=== PATIENT | male | born 1970 | race Caucasian/White ===

== ENCOUNTER 2016-05-06 02:11 | Observation (INO) | payer SELFPAY ==
[~2016-05-06] VITALS: Ht 175.3 cm; Wt 94.0 kg
[2016-05-06] VITALS (8 sets, daily range): BP systolic 121–153; BP diastolic 72–105; PULSE 52–72; RESP 16–22; TEMP 97.6–98; O2SAT 95–100
[2016-05-06] MEDS: SODIUM CHLOR 0.9% 1000 ML INJ 1,000 ML IV SCH ×2 (02:29→06:09)
[2016-05-06] MEDS ORDERED: ONDANSETRON HCL 4 MG/2 ML VIAL IVP ONE (02:30)
[2016-05-06] MEDS ORDERED: SODIUM CHLORIDE 0.9% FLUSH 5 ML FLUSH IVF PRN ×3 (02:30→19:30)
[2016-05-06] MEDS ORDERED: HYDROmorphone HCL PF 1 MG/ML VIAL IV PUSH ONE (02:30)
[2016-05-06 02:40] LABS: AUTOMATED NEUTROPHIL # 5.4 TH/MM3 (1.8-7.7); BASOPHIL % 0.4 % (0.0-2.0); EOSINOPHIL # 0.6 TH/MM3 (0-0.4); EOSINOPHIL % 6.1 % (0.0-4.0); HEMATOCRIT 46.1 % (39.0-51.0); HEMO FLAGS DIFF FINAL; LYMPH % 27.6 % (9.0-44.0); LYMPHOCYTE # 2.5 TH/MM3 (1.0-4.8); MEAN CELL VOLUME 90.1 FL (80.0-100.0); MEAN CORPUSCULAR HEMOGLOBIN 28.7 PG (27.0-34.0); MEAN CORPUSCULAR HGB CONC 31.9 % (32.0-36.0); MONO % 7.1 % (0.0-8.0); NEUT % 58.8 % (16.0-70.0); PLATELET COUNT 333 TH/MM3 (150-450); RED BLOOD COUNT 5.11 MIL/MM3 (4.50-5.90); RED CELL DISTRIBUTION WIDTH 13.5 % (11.6-17.2); WHITE BLOOD COUNT 9.2 TH/MM3 (4.0-11.0)
--- NOTE | 2016-05-06 02:41 | PD ---
HPI Chief Complaint: Abdominal Pain Time Seen by Provider: 02:21 Travel History International Travel<30 days: No Contact w/Intl Traveler<30days: No Traveled to known affect area: No History of Present Illness HPI 45-year-old male presents to the emergency department by private transportation for complaint of right upper quadrant abdominal pain. According to the patient since 1:30 AM patient has had severe abdominal pain. Patient states she was attempting to eat half of a ham sandwich when his pain began. Patient denies chest pain. Patient has had nausea and vomiting. No report of hematemesis coffee-ground emesis melena or hematochezia. No shortness of breath or sweats. No referred pain. Patient states she's been dealing with abdominal pain and right upper quadrant pain intermittently for the past month or so. 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 Patient denies personal history of hypertension dyslipidemia diabetes or CAD. Patient denies family history of premature onset heart disease. Patient does have family history of grandmother dying of brain cancer. Patient rates pain 12/10 in intensity. Patient denies any injury. Patient denies known history of peptic ulcer disease cholelithiasis/biliary colic or pancreatitis. PFSH Past Medical History Narrative Medical Remote neck trauma with tracheostomy; tobacco use substance use; nursing notes reviewed Social History Tobacco Use: No Allergies-Medications (Allergen,Severity, Reaction): Coded Allergies: Codeine (Verified Allergy, Unknown, 05/06/16) Penicillin (Verified Allergy, Unknown, 05/06/16) Reported Meds & Prescriptions Reported Meds & Active Scripts Active Reported Percocet (Oxycodone-Acetaminophen) 5-325 mg Tab 1-2 Tab PO Q4H PRN Physical Exam Narrative GENERAL: Well-developed well-nourished male in obvious discomfort holding his abdomen and crying tearfully. SKIN: Warm and dry. HEAD: Normocephalic. EYES: No scleral icterus. No injection or drainage. NECK: Supple, trachea midline. No JVD or lymphadenopathy. CARDIOVASCULAR: Regular rate and rhythm without murmurs, gallops, or rubs. RESPIRATORY: Breath sounds equal bilaterally. No accessory muscle use. GASTROINTESTINAL: Abdomen soft, non-tender, nondistended. MUSCULOSKELETAL: No cyanosis, or edema. BACK: Nontender without obvious deformity. No CVA tenderness. Data Data Last Documented VS Orders Complete Blood Count With Diff (05/06/16 02:22) Comprehensive Metabolic Panel (05/06/16 02:22) Lipase (05/06/16 02:22) Urinalysis - C+S If Indicated (05/06/16 02:22) Ct Abd/Pel W Iv Contrast(Rout) (05/06/16 02:22) Iv Access Insert/Monitor (05/06/16 02:22) Ecg Monitoring (05/06/16 02:22) Oximetry (05/06/16 02:22) Ondansetron Inj (Zofran Inj) (05/06/16 02:30) Sodium Chlor 0.9% 1000 Ml Inj (Ns 1000 M (05/06/16 02:22) Sodium Chloride 0.9% Flush (Ns Flush) (05/06/16 02:30) Electrocardiogram (05/06/16 02:22) Chest, Single Ap (05/06/16 02:22) Troponin I (05/06/16 02:22) Magnesium (Mg) (05/06/16 02:22) Hydromorphone Pf Inj (Dilaudid Pf Inj) (05/06/16 02:30) Drug Screen, Random Urine (05/06/16 02:41) Iohexol 300 Inj (Rad Ct) (Omnipaque 300 (05/06/16 04:04) Admit Order (Ed Use Only) (05/06/16 ) ^ Coatings Inspector / Telemetry (05/06/16 05:40) ^ Saline Lock (05/06/16 05:40) Resp Oxygen Florentin C Titrat 1-4 L (05/06/16 ) ^ Notify Dr: Other (05/06/16 05:40) Ondansetron Inj (Zofran Inj) (05/06/16 05:45) Sodium Chloride 0.9% Flush (Ns Flush) (05/06/16 09:00) Sodium Chloride 0.9% Flush (Ns Flush) (05/06/16 05:45) ^ For Further Orders (05/06/16 05:40) Labs MDM Medical Decision Making Medical Screen Exam Complete: Yes Emergency Medical Condition: Yes Medical Record Reviewed: Yes Interpretation(s) EKG normal sinus rhythm rate [address] elevation or injury pattern J-point elevation is noted at V3 CT abd/pel: CONCLUSION: 1. Cholelithiasis and gallbladder wall thickening, could be acute cholecystitis in the right clinical setting. 2. Otherwise unremarkable CT abdomen/pelvis. Marcellus Cunha MD on May 06, 2016 at 5:14 Board Certified Radiologist. This report was verified electronically. cbc: grossly wnl metabolic panel:random glucose 115 o/w values grossly wnl troponin I: less than 0.02, not elevated ua: wnl uds: negative Differential Diagnosis Abdominal pain, acute cholecystitis, biliary colic, choledocholithiasis, pancreatitis, ruptured viscus, peptic ulcer disease, esophageal spasm, Boerhaave 's, Tessa-Lucia tear, ACS, IA Narrative Course Patient placed on regional vice president life sales IV access obtained EKG performed which reveals no acute ST elevation or injury pattern patient administered Zofran 4 mg IV along with Dilaudid 0.5 mg IV. Patient admitted to nursing staff that he had used cocaine recently patient remains tender to palpation after dilaudid and ct with wall thickening and gallstones noted; LFT's wnl x alk phos mild elevation; patient remains npo Physician Communication Physician Communication case discussed with Dr Elizabeth Colby --admit to his service to [facility] Diagnosis Primary Impression: Cholecystitis, acute with cholelithiasis Qualified Code: K80.00 - Calculus of gallbladder with acute cholecystitis without obstruction Admitting Information Admitting Physician Requests: Admit Sheyla Guevara MD May 06, 2016 02:41 Anion Gap 7 MEQ/L Blood Urea Nitrogen 11 MG/DL Creatinine 1.20 MG/DL Estimat Glomerular Filtration 66 ML/MIN Rate Random Glucose 115 MG/DL Calcium Level 8.2 MG/DL Magnesium Level 2.4 MG/DL Total Bilirubin 0.2 MG/DL Aspartate Amino Transf 33 U/L (AST/SGOT) Alanine Aminotransferase 38 U/L (ALT/SGPT) Alkaline Phosphatase 123 U/L Troponin I LESS THAN 0.02 NG/ML Total Protein 7.8 GM/DL Albumin 3.6 GM/DL Lipase 166 U/L Urine Color YELLOW Urine Turbidity CLEAR Urine pH 5.5 Urine Specific [place] 1.025 Urine Protein NEG mg/dL Urine Glucose (UA) NEG mg/dL Urine Ketones NEG mg/dL Urine Occult Blood NEG Urine Nitrite NEG Urine Bilirubin NEG Urine Leukocyte Esterase NEG Urine WBC 0-2 /hpf Urine Squamous Epithelial 0-5 /hpf Cells Urine Mucus OCC /lpf Microscopic Urinalysis Comment CULT NOT INDICATED Urine Opiates Screen NEG Urine Barbiturates Screen NEG Urine Amphetamines Screen NEG Urine Benzodiazepines Screen NEG Urine Cocaine Screen NEG Urine Cannabinoids Screen NEG MDM Medical Decision Making Medical Screen Exam Complete: Yes Emergency Medical Condition: Yes Medical Record Reviewed: Yes Interpretation(s) EKG normal sinus rhythm rate [address] elevation or injury pattern J-point elevation is noted at V3 CT abd/pel: CONCLUSION: 1. Cholelithiasis and gallbladder wall thickening, could be acute cholecystitis in the right clinical setting. 2. Otherwise unremarkable CT abdomen/pelvis. Marcellus Cunha MD on May 06, 2016 at 5:14 Board Certified Radiologist. This report was verified electronically. cbc: grossly wnl metabolic panel:random glucose 115 o/w values grossly wnl troponin I: less than 0.02, not elevated ua: wnl uds: negative Differential Diagnosis Abdominal pain, acute cholecystitis, biliary colic, choledocholithiasis, pancreatitis, ruptured viscus, peptic ulcer disease, esophageal spasm, Boerhaave 's, Tessa-Lucia tear, ACS, IA Narrative Course Patient placed on regional vice president life sales IV access obtained EKG performed which reveals no acute ST elevation or injury pattern patient administered Zofran 4 mg IV along with Dilaudid 0.5 mg IV. Patient admitted to nursing staff that he had used cocaine recently patient remains tender to palpation after dilaudid and ct with wall thickening and gallstones noted; LFT's wnl x alk phos mild elevation; patient remains npo Physician Communication Physician Communication case discussed with Dr Elizabeth Colby --admit to his service to [facility] Diagnosis Primary Impression: Cholecystitis, acute with cholelithiasis Qualified Code: K80.00 - Calculus of gallbladder with acute cholecystitis without obstruction Admitting Information Admitting Physician Requests: Admit Sheyla Guevara MD May 06, 2016 02:41
[2016-05-06 02:45] LABS: CHLORIDE 109 MEQ/L (98-107); POTASSIUM 4.2 MEQ/L (3.5-5.1); SODIUM (NA) 143 MEQ/L (136-145)
[2016-05-06 02:48] LABS: ANION GAP 7 MEQ/L (5-15); BICARBONATE 26.9 MEQ/L (21.0-32.0); MAGNESIUM 2.4 MG/DL (1.5-2.5)
[2016-05-06 02:49] LABS: BLOOD UREA NITROGEN 11 MG/DL (7-18)
[2016-05-06 02:51] LABS: ALT (GPT) 38 U/L (12-78); AST (GOT) 33 U/L (15-37); GLOMERULAR FILTRATION RATE 66 ML/MIN (>89)
[2016-05-06 02:53] LABS: TOTAL BILIRUBIN ADULT 0.2 MG/DL (0.2-1.0)
[2016-05-06 02:54] LABS: ALKALINE PHOSPHATASE 123 U/L (45-117)
--- NOTE | 2016-05-06 03:19 | RADHPO ---
EXAM DATE/TIME: 05/06/2016 02:46 [facility] COMPARISON: No previous studies available for comparison. INDICATIONS : Patient states chest pains. MEDICAL HISTORY : None. SURGICAL HISTORY : None. ENCOUNTER: Initial ACUITY: 1 day PAIN SCORE: 4/10 LOCATION: Bilateral chest FINDINGS: A single view of the chest demonstrates the lungs to be symmetrically aerated without evidence of mas s, infiltrate or effusion. The cardiomediastinal contours are unremarkable. Osseous structures are intact.CONCLUSION: No acute disease. Marcellus Cunha MD on May 06, 2016 at 3:18 Board Certified Radiologist. This report was verified electronically.
[2016-05-06] MEDS ORDERED: IOHEXOL 300 MG/ML 100 ML BTL (for Rad CT) IV ONE (04:04)
[2016-05-06 04:16] LABS: BLOOD, URINE NEG (NEG); GLUCOSE,URINE NEG (NEG); KETONE, URINE NEG (NEG); NITRITE,URINE NEG (NEG); PH, URINE 5.5 (5.0-8.5)
[2016-05-06 04:29] LABS: BARBITURATES, URINE NEG (NEG)
[2016-05-06 04:30] LABS: AMPHETAMINE, URINE NEG (NEG); COCAINE, URINE NEG (NEG)
[2016-05-06 04:32] LABS: URINE COLOR YELLOW (YELLW/STRAW)
[2016-05-06 04:36] LABS: MUCUS URINE OCC /lpf (OCC); SQUAMOUS EPITHELIAL CELL URINE 0-5 /hpf (0-5)
[2016-05-06 04:37] LABS: COMMENT (UR) CULT NOT INDICATED; CULTURE IF INDICATED CULT NOT INDICATED; WBC, URINE 0-2 /hpf (0-5)
--- NOTE | 2016-05-06 05:17 | RADHPO ---
EXAM DATE/TIME: 05/06/2016 03:50 [facility] COMPARISON: No previous studies available for comparison. INDICATIONS : Right upper quadrant pain. IV CONTRAST: 100 cc Omnipaque 300 (iohexol) IV ORAL CONTRAST: No oral contrast ingested. RADIATION DOSE: 15.74 CTDIvol (mGy) MEDICAL HISTORY : None SURGICAL HISTORY : None. ENCOUNTER: Initial ACUITY: 1 day PAIN SCALE: 10/10 LOCATION: Right upper quadrant TECHNIQUE: Volumetric scanning of the abdomen and pelvis was performed. Using automated exposure control and ad justment of the mA and/or kV according to patient size, radiation dose was kept as low as reasonably achievable to obtain optimal diagnostic quality images. FINDINGS: LOWER LUNGS: The visualized lower lungs are clear. LIVER: Homogeneous density without lesion. There is no dilation of the biliary tree. There are a few calcif ied gallstones. There does appear to be some wall thickening SPLEEN: Normal size without lesion. PANCREAS: Within normal limits. KIDNEYS: Normal in size and shape. There is no mass, stone or hydronephrosis. ADRENAL GLANDS: Within normal limits. VASCULAR: There is no aortic aneurysm. BOWEL/MESENTERY: The stomach, small bowel, and colon demonstrate no acute abnormality. There is no free intraperitone al air or fluid. ABDOMINAL WALL: Within normal limits. RETROPERITONEUM: There is no lymphadenopathy. BLADDER: No wall thickening or mass. REPRODUCTIVE: Within normal limits. INGUINAL: There is no lymphadenopathy or hernia. MUSCULOSKELETAL: Within normal limits for patient age. CONCLUSION: 1. Cholelithiasis and gallbladder wall thickening, could be acute cholecystitis in the right clinical setting. 2. Otherwise unremarkable CT abdomen/pelvis. Marcellus Cunha MD on May 06, 2016 at 5:14 Board Certified Radiologist. This report was verified electronically.
[2016-05-06] MEDS ORDERED: CIPROFLOXACIN 400 MG PREMIX 200 ML IV ONE (05:45)
[2016-05-06] MEDS ORDERED: metroNIDAZOLE 500 MG INJ 100 ML IV ONE (05:45)
[2016-05-06] MEDS ORDERED: ONDANSETRON HCL 4 MG/2 ML VIAL IV PRN ×2 (05:45→19:30)
[2016-05-06] MEDS ORDERED: PROPOFOL 200 MG/20 ML AMP IV ONE (08:30)
[2016-05-06] MEDS ORDERED: ePHEDrine/NS 50 MG/5 ML SYR IV ONE (08:31)
[2016-05-06] MEDS ORDERED: LACTATED RINGER'S 1000 ML INJ 1,000 ML IV ONE (08:31)
[2016-05-06] MEDS ORDERED: ONDANSETRON HCL 4 MG/2 ML VIAL IV PUSH ONE (08:31)
[2016-05-06] MEDS: SODIUM CHLORIDE 0.9% FLUSH 5 ML FLUSH IVF SCH ×2 (09:08→12:00)
[2016-05-06] MEDS ORDERED: LACTATED RINGER'S 1000 ML INJ 1,000 ML IV SCH (10:48)
[2016-05-06] MEDS ORDERED: SODIUM CHLORIDE 0.9% FLUSH 5 ML FLUSH IV FLUSH PRN (11:00)
[2016-05-06] MEDS ORDERED: HYDROmorphone HCL PF 1 MG/ML VIAL IV PUSH PRN (11:00)
[2016-05-06] MEDS ORDERED: SODIUM CHLORID 0.9% 500 ML IV SCH (11:15)
[2016-05-06] MEDS ORDERED: METOPROLOL TARTRATE 25 MG TAB PO PRN (11:15)
[2016-05-06] MEDS ORDERED: LACTATED RINGER'S 1000 ML IV SCH (11:15)
[2016-05-06] MEDS ORDERED: INSULIN HUMAN REGULAR 1,000 UNITS/10 ML VIAL SQ PRN (11:15)
--- NOTE | 2016-05-06 11:18 | EKG ---
Date Performed: 05/06/2016 Time Performed: 02:24:32 PTAGE: 45 years EKG: Sinus rhythm Normal ECG NO PREVIOUS TRACING DOCTOR: Suresh Ernst Interpretating Date/Time 05/06/2016 11:17:58
[2016-05-06] MEDS ORDERED: metroNIDAZOLE 500 MG INJ 100 ML IV SCH ×2 (14:00→15:00)
[2016-05-06] MEDS ORDERED: BUPIVACAINE/EPINEPHRINE 0.25% PF 30 ML VIAL ONE (17:59)
[2016-05-06] MEDS ORDERED: CIPROFLOXACIN 400 MG PREMIX 200 ML IV SCH ×2 (18:00→21:00)
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
[2016-05-06] MEDS ORDERED: ACETAMINOPHEN 1000 MG/100 ML VIAL IV ONE (19:09)
[2016-05-06] MEDS ORDERED: SUGAMMADEX SODIUM 200 MG/2 ML VIAL IV PUSH ONE ×2 (19:09)
[2016-05-06] MEDS ORDERED: HYDROmorphone HCL PF 1 MG/ML VIAL IV PRN (19:30)
[2016-05-06] MEDS ORDERED: oxyCODONE/ACETAMINOPHEN 5 MG/325 MG TAB PO PRN (19:30)
[2016-05-06] MEDS ORDERED: Post-op Orders (for Pharmacy) MISC XX ONE (19:30)
[2016-05-06] MEDS ORDERED: NALOXONE HCL 0.4 MG/ML AMP IV PRN (19:30)
[2016-05-06] MEDS ORDERED: diphenhydrAMINE HCL 25 MG CAP PO PRN (19:30)
[2016-05-06] MEDS ORDERED: MIDAZOLAM HCL 2 MG/2 ML VIAL ONE (19:41)
[2016-05-06] MEDS ORDERED: fentaNYL CITRATE 250 MCG/5 ML AMP ONE (19:42)
[2016-05-06] MEDS ORDERED: *MEPERIDINE 25 MG INJ VIAL PERIprocedural Use ONLY ONE (19:46)
[2016-05-06] MEDS ORDERED: SODIUM CHLOR 0.9% 1000 ML INJ 1,000 ML IV SCH (20:00)
[2016-05-06] MEDS ORDERED: DO NOT ADM ANY ANTICOAGULANT DRUGS XX PRN (20:00)
[2016-05-06] MEDS ORDERED: KETOROLAC TROMETHAMINE 30 MG/ML (IVP) VIAL IVP PRN (20:00)
[2016-05-06] MEDS ORDERED: SODIUM CHLORIDE 0.9% FLUSH 5 ML FLUSH IV FLUSH SCH (21:00)
[2016-05-06] MEDS ORDERED: SODIUM CHLORIDE 0.9% FLUSH 5 ML FLUSH IVF SCH (21:00)
--- NOTE | 2016-05-06 21:26 | MP ---
cc: DAVID WAGNER M.D. DATE OF SURGERY: 05/06/2016 PREOPERATIVE DIAGNOSIS: Acute cholecystitis POSTOPERATIVE DIAGNOSIS: Acute cholecystitis OPERATION: Laparoscopic cholecystectomy SURGEON: David Wagner MD. ANESTHESIA: General endotracheal anesthesia COMPLICATIONS: None. INDICATIONS FOR PROCEDURE: Mr. Morales is a pleasant 45 year-old gentleman who presented to [facility] early this morning complaining of severe right upper quadrant post prandial abdominal pain. He was worked up and evaluated by Dr. Guevara and found to have acute cholecystitis. He was transferred to [facility] for immediate cholecystectomy. The risks and benefits of open laparoscopic cholecystectomy was discussed with him. He was agreeable. INTRAOPERATIVE FINDINGS The patient was noted have a distended edematous gallbladder. It was fairly inflamed and the liver bed was a little bloody due to the acute inflammatory reaction. Venous sinus of the liver was encountered and this was controlled with electrocautery Bovie. ESTIMATED BLOOD LOSS: Approximately 50 cc. DETAILS The patient was identified, brought to the operating room, placed supine on the operating room table. After general endotracheal anesthesia was achieved, the abdomen was prepped and draped in standard surgical fashion. The infraumbilical space was anesthetize with 0.25% Marcaine. Infraumbilical incision was made. Dissection was carried down through the subcutaneous tissue and midline fascia. The midline fascia was then incised sharply. A finger was then placed in the peritoneal cavity without difficulty. Blunt balloon trocar was inserted and the abdomen was insufflated with 15 mmHg using CO2 gas. Next two 5 mm trocars were placed in the right upper quadrant after anesthetizing the skin and subcutaneous tissue with 0.25% Marcaine. Attention was directed to the gallbladder which was noted to be distended and edematous. Gallbladder was retracted cephalad. The gallbladder neck was then carefully dissected. The cystic duct was clearly identified in two planes entering the neck of the gallbladder. Once this was confirmed in two planes, it was clipped twice proximally, once distally and then divided. Next the cystic artery was identified. The cystic artery was clipped once proximally, once distally and then divided. The gallbladder was then dissected out of the hepatic fossa using electrocautery Bovie. There was a fairly intense inflammatory action that was very edematous on the posterior wall of the gallbladder and it was fairly adherent to the liver. There were several bleeding points along the liver which were controlled with electrocautery Bovie. In the lateral segment, near the fundus of the gallbladder, there was noted to be a venous sinusoid which was bleeding fairly briskly. This was grasped with a trocar and controlled. The area was then Bovied with electrocautery on a setting of 100 and this stopped all bleeding. This was on the lateral border of the liver edge on the hepatic fossa. Once this bleeding was controlled, the rest of the gallbladder came out without any difficulty. The gallbladder was placed in an Endopouch bag and brought out through the infraumbilical port. The gallbladder was inspected and found to contain multiple small stones. The clips on the cystic duct stump were intact without evidence of leakage of bile. The gallbladder was sent for pathology. Next the abdominal cavity was revisualized. The liver bed was completely hemostatic. It was irrigated aggressively and no bleeding was noted. The clips were reinspected on the cystic artery and cystic duct stump and there was no evidence of bleeding from the cystic artery and no evidence of leakage of bile from the cystic duct stump. The abdomen was then rinsed out with 500 cc of normal saline solution. Effluent was noted to be clear. The liver bed was inspected a third time and it was completely hemostatic. We elected to place Noemy in the liver bed due to the acute inflammatory reaction and oozing that we encountered during the surgery. One gram of Noemy was placed. No bleeding was noted through thw white powder. At this point all ports were removed under direct vision. The midline fascia was repaired with 0 Vicryl in a [id number] fashion. Skin was closed with 4-0 Vicryl. The patient tolerated the procedure well, was awakened and brought to recovery in stable condition. MD SUSHIL Knapp/FRED /7:23 PM /9:13 PM
[2016-05-06] MEDS ORDERED: PCA - TOTAL MG MORPHINE DELIVERED PER SHIFT SCH (22:00)
[2016-05-06] MEDS ORDERED: PERC5TAB12 PO (23:13)
[2016-05-07] MEDS ORDERED: PANTOPRAZOLE SODIUM 40 MG VIAL IV SCH (09:00)
== END 2016-05-06 20:45 | disposition left against medical advice (07) ==
LOC: PHED 02:11 → PHEDA 05:42 → INTOOBSV 05:42 → HSDI 09:56
PROVIDERS: ADMIT Surgery Trauma Surgery; ATTEND Surgery Trauma Surgery
DX: K80.00 Calculus of gallbladder with acute cholecystitis without obstruction (principal); Z72.0 Tobacco use; Z80.8 Family history of malignant neoplasm of other organs or systems
CPT/HCPCS: 00790; 47562; 71010; 74177; 80053; 80307; 81001; 83690; 83735; 84484; 85025; 88304; 93005; 96361; 96374; 96375; 99285; G0378; J0131; J0744; J1170; J1885; J2175; J2250; J2405; J3010; J7030; J7120; Q9967